=== PATIENT | male | born 1990 | race Caucasian/White ===

== ENCOUNTER 2022-06-08 04:43 | Day surgery (SDC) | payer OTHER ==
[2022-06-07 15:07] VITALS: BMI 34.5
[2022-06-08 14:43] VITALS: TEMP 97.7
[2022-06-08 15:06] VITALS: PULSE 63
[2022-06-08 15:21] VITALS: BP 116/81; RESP 18
== END 2022-06-08 16:15 | disposition home or self-care (01) ==
LOC: JASU-ENDO 04:43
PROVIDERS: ATTEND Student in an Organized Health Care Education/Training Program
PROC: 0DB78ZX Excision of Stomach, Pylorus, Via Natural or Artificial Opening Endoscopic, Diagnostic (ICD-10-PCS; 2022-06-08)
PROC: 0DB68ZX Excision of Stomach, Via Natural or Artificial Opening Endoscopic, Diagnostic (ICD-10-PCS; principal; 2022-06-08 14:00)
DX: K29.50 Unspecified chronic gastritis without bleeding (principal)
CPT/HCPCS: 88305-TC; 88342-TC